=== PATIENT | female | born 1955 | race Hispanic/Latino ===

== ENCOUNTER 2016-06-10 11:06 | Emergency (ER) | payer OTHER, MEDICARE ==
[2016-06-10 11:23] VITALS: BP 140/70
[2016-06-10] MEDS ORDERED: TORADOL IM ONE (14:31)
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
[2016-06-10 14:58] LABS: Hematocrit 44.9 % (30.3-42.9); Mean Corpuscular HGB Conc 34 % (30-34); Mean Corpuscular Hemoglobin 30 pg (28-32); Mean Corpuscular Volume 90 fl (79-97); Platelet Count 227 K/mm3 (140-440); Red Blood Count 5.01 M/mm3 (3.65-5.03); Red Cell Distribution Width 14.1 % (13.2-15.2); White Blood Count 8.7 K/mm3 (4.5-11.0)
[2016-06-10 15:16] LABS: Amylase 14 units/L (27-131); Lipase 15 units/L (13-60)
--- NOTE | 2016-06-10 15:51 | Ultrasound Report ---
Limited abdominal ultrasound: Images of the liver and pancreas are echogenically unremarkable as is the gallbladder. The CBD diameter is 4.4 mm. The right renal length is 11.5 cm and the kidney is also echogenically normal. No other findings. The transverse diameter of the proximal abdominal aorta is 1.5 cm. Impression: No abnormality identified.
== END 2016-06-10 16:29 | disposition home or self-care (01) ==
LOC: ED 11:06
DX: S80.211A Abrasion, right knee, initial encounter (principal); R07.9 Chest pain, unspecified; E11.9 Type 2 diabetes mellitus without complications; G43.909 Migraine, unspecified, not intractable, without status migrainosus; J45.909 Unspecified asthma, uncomplicated; J44.9 Chronic obstructive pulmonary disease, unspecified; F17.200 Nicotine dependence, unspecified, uncomplicated; V49.59XA Passenger injured in collision with other motor vehicles in traffic accident, initial encounter; Y93.9 Activity, unspecified; Y92.9 Unspecified place or not applicable; Y99.9 Unspecified external cause status
CPT/HCPCS: 36415; 76705; 82150; 83690; 85027; 96372; 99284; J1885

== ENCOUNTER 2016-07-19 14:02 | Inpatient (IN) | payer MEDICARE, OTHER ==
[2016-07-19] MEDS ORDERED: TORADOL IV ONE (15:50)
[2016-07-19] MEDS ORDERED: ZOFRAN IV ONE (15:50)
[2016-07-19] MEDS ORDERED: MORPHINE IV ONE (15:50)
[2016-07-19] MEDS ORDERED: NACL 0.9% 1000 ML 1,000 ML IV ONE (15:50)
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
[2016-07-19] MEDS ORDERED: CLEOCIN 900 MG/50 mL 900 MG/50 ML BAG IV ONE (16:54)
[2016-07-19 17:11] LABS: Basophils % (Auto) 0.5 % (0.0-1.8); Eosinophils % (Auto) 3.3 % (0.0-4.3); Hematocrit 42.3 % (30.3-42.9); Hemoglobin 13.9 gm/dl (10.1-14.3); Mean Corpuscular HGB Conc 33 % (30-34); Mean Corpuscular Hemoglobin 30 pg (28-32); Mean Corpuscular Volume 90 fl (79-97); Platelet Count 243 K/mm3 (140-440); Red Blood Count 4.68 M/mm3 (3.65-5.03); Red Cell Distribution Width 13.5 % (13.2-15.2)
[2016-07-19 17:24] LABS: Anion Gap 15 mmol/L; Blood Urea Nitrogen 11 mg/dL (7-17); Calcium 9.2 mg/dL (8.4-10.2); Carbon Dioxide 26 mmol/L (22-30); Glucose 360 mg/dL (65-100); Potassium 4.3 mmol/L (3.6-5.0); Sodium 133 mmol/L (137-145)
[2016-07-19] MEDS ORDERED: D50W (25GM) IV PRN (17:33)
--- NOTE | 2016-07-19 17:44 | Admit Criteria Form ---
Admission Criteria Documentation: DIABETES Clinical Indications for Admission to Inpatient Care (Place 'X' for any and all applicable criteria): Admission is indicated by presence of ALL (if I & II) or ANY ONE (if III or IV) of the following (1)(2)(3)(4): [X]I. Diabetes is uncontrolled as indicated by ANY ONE of the following: [X]a) Diabetic ketoacidosis as indicated by ALL of the following (8): [X]i) Hyperglycemia (eg, plasma glucose greater than 200 mg/ dL (11.1 mmol/L)) [X]ii) Acidosis (eg, arterial pH less than 7.30, serum bicarbonate level less than 15 mEq/L (mmol/L)) [ ]iii) Moderate ketonuria or ketonemia [ ]b) Hyperglycemic hyperosmolar state as indicated by ALL of the following(9)(10): [ ]i) Neurologic dysfunction (eg, stupor, coma, hemiparesis , seizure)(13) [ ]ii) Plasma glucose greater than 600 mg/dL (33.3 mmol/L) [ ]iii) Serum osmolality greater than 320 mOsm/kg (mmol/kg) [X]c) Severe signs or symptoms secondary to hyperglycemia indicated by ANY ONE of the following: [ ]i) Altered mental status(10) [ ]ii) Significant hypovolemia or dehydration [ ]iii) Intractable nausea or vomiting [X]iv) Unexplained fever or severe infection [X]v) Severe electrolyte abnormality (eg, hypokalemia, hyperkalemia, hypernatremia) [ ]II. Management at other levels of care (Also use Diabetes: Observation Care as appropriate) is not feasible because of ANY ONE of the following: [ ]a) Condition was not adequately corrected with treatment at other levels of care. [ ]b) Treatment at other levels of care is not appropriate because of condition severity (eg, hyperosmolar coma). [X]III. Contraindications and/or Inappropriate clinical situations for Observational Care in patients with Diabetes, when ANY ONE of the following is required: [X]a) Patient require specific diagnostic workup or therapeutic intervention 22 [ ]b) Patient with abnormal vital signs or altered mental status 23 [ ]IV. General contraindications and/or Inappropriate clinical situations for Observational Care in patients with Diabetes, when ANY ONE of the following is required: [ ]a) Prediction of prolongation of LOS based on ANY ONE of the following may be considered as a contraindication for observational care 2, 3, 4, 5, 6, 7, 8, 9, 10, 11 [ ]i) Age > 65 yrs. [ ]ii) Patient arriving by ambulance [ ]iii) Patient with high acuity [ ]iv) Patient requiring vital sign monitoring [ ]v) Patient on IV medication [ ]b) Systolic blood pressures 180mmHg 3,12 [ ]c) Patient with altered mental status including delirium and other alteration of consciousness, (3) [ ]d) Patient whose discharge disposition will be to a snf home or rehabilitation home should not be managed in Emergency Department Observation Unit. CMS rule requires 3 days hospital stay before such placement.3,13 [ ]e) Patient with failure to thrive due to broad array of etiologies 3,16,17 [ ]f) Inability to ambulate 3,14 Extended stay beyond goal length of stay may be needed for(3)(20): [ ]a) Treatment of precipitating causes [ ]b) Development of hypoglycemia [ ]c) Complications of treatment [ ]d) Complications of decompensated diabetes (eg, acute gastric dilatation, persistent metabolic or neurologic derangement) [ ]e) Active Comorbidities [ ]f) Older patients( 65 years or older) The original [employer] content created by [employer] has been revised. The portions of the content which have been revised are identified through the use of italic text or in bold,and [facility] has neither reviewed nor approved the modified material. All other unmodified content is copyright [facility]. Please see references footnoted in the original [facility] edition 2016 Admission Criteria Met: Yes
[2016-07-19 18:24] LABS: Bilirubin,Urine NEG (Negative); Blood,Urine NEG (Negative); Ketones,Urine NEG (Negative); Leukocyte Esterase,Urine MOD (Negative); Nitrite,Urine NEG (Negative); Protein,Urine <15 mg/dL mg/dL (Negative); Urobilinogen,Urine < 2.0 mg/dL (<2.0)
[2016-07-19 18:55] LABS: Anion Gap 14 mmol/L; Blood Urea Nitrogen 11 mg/dL (7-17); Calcium 9.1 mg/dL (8.4-10.2); Carbon Dioxide 26 mmol/L (22-30); Chloride 96.9 mmol/L (98-107); Glucose 327 mg/dL (65-100); Magnesium 1.6 mg/dL (1.7-2.3); Phosphorous 4.2 mg/dL (2.5-4.5); Potassium 4.4 mmol/L (3.6-5.0); Sodium 132 mmol/L (137-145)
[2016-07-19 20:08] LABS: Anion Gap 15 mmol/L; Blood Urea Nitrogen 11 mg/dL (7-17); Calcium 9.2 mg/dL (8.4-10.2); Carbon Dioxide 27 mmol/L (22-30); Chloride 95.3 mmol/L (98-107); Glucose 326 mg/dL (65-100); Potassium 4.3 mmol/L (3.6-5.0); Sodium 133 mmol/L (137-145)
[2016-07-19] MEDS ORDERED: DULCOLAX PR PRN (22:40)
[2016-07-19] MEDS ORDERED: NORCO 5/325 PO PRN (22:40)
[2016-07-19] MEDS ORDERED: MILK OF MAGNESIA PO PRN (22:40)
[2016-07-19] MEDS ORDERED: ZOFRAN IV PRN (22:40)
[2016-07-19] MEDS ORDERED: TYLENOL PO PRN (22:40)
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
[2016-07-19 22:48] LABS: Anion Gap 16 mmol/L; BUN/Creatinine Ratio 23.33; Blood Urea Nitrogen 14 mg/dL (7-17); Calcium 9.1 mg/dL (8.4-10.2); Carbon Dioxide 26 mmol/L (22-30); Chloride 95.8 mmol/L (98-107); Glucose 356 mg/dL (65-100); Potassium 4.3 mmol/L (3.6-5.0); Sodium 133 mmol/L (137-145)
[2016-07-19] MEDS ORDERED: NACL 0.9% 1000 ML 1,000 ML IV SCH (23:00)
[2016-07-19] MEDS ORDERED: MAGNESIUM SULFATE 2GM/50ML 2 GM/50 ML BAG IV ONE (23:38)
[2016-07-20 00:08] LABS: Anion Gap 17 mmol/L; Blood Urea Nitrogen 15 mg/dL (7-17); Calcium 9.4 mg/dL (8.4-10.2); Carbon Dioxide 26 mmol/L (22-30); Chloride 95.7 mmol/L (98-107); Glucose 342 mg/dL (65-100); Potassium 4.3 mmol/L (3.6-5.0); Sodium 134 mmol/L (137-145)
[2016-07-20] MEDS ORDERED: MAGNESIUM SULFATE 2GM/50ML 2 GM/50 ML BAG IV ONE (00:10)
[2016-07-20] MEDS ORDERED: NACL 0.9% 1000 ML 1,000 ML ONE (00:10)
[2016-07-20] MEDS ORDERED: CLEOCIN 600 MG/50 mL 600 MG/50 ML BAG IV SCH (01:00)
[2016-07-20] MEDS: NovoLIN R 100 UNITS in NACL 0.9% 99 ML IV SCH ×10 (01:05→11:46)
[2016-07-20] MEDS: MORPHINE IV PRN ×3 (01:10→19:34)
[2016-07-20] MEDS: CLEOCIN 600 MG/50 mL 600 MG/50 ML BAG IV SCH ×3 (01:28→19:29)
[2016-07-20 01:55] LABS: Anion Gap 16 mmol/L; Blood Urea Nitrogen 16 mg/dL (7-17); Calcium 9.1 mg/dL (8.4-10.2); Carbon Dioxide 24 mmol/L (22-30); Chloride 98.8 mmol/L (98-107); Glucose 190 mg/dL (65-100); Potassium 3.6 mmol/L (3.6-5.0); Sodium 135 mmol/L (137-145)
[2016-07-20] MEDS ORDERED: D5/0.45NS 1,000 ML IV SCH (03:00)
[2016-07-20 05:40] LABS: Basophils % (Auto) 0.6 % (0.0-1.8); Eosinophils % (Auto) 5.7 % (0.0-4.3); Hematocrit 42.6 % (30.3-42.9); Mean Corpuscular HGB Conc 33 % (30-34); Mean Corpuscular Hemoglobin 30 pg (28-32); Mean Corpuscular Volume 91 fl (79-97); Platelet Count 220 K/mm3 (140-440); Red Blood Count 4.69 M/mm3 (3.65-5.03); Red Cell Distribution Width 13.8 % (13.2-15.2); White Blood Count 8.6 K/mm3 (4.5-11.0)
[2016-07-20] MEDS ORDERED: NON-FORMULARY (Solifenacin Succinate [Vesicare] 5 MG) PO SCH (10:00)
[2016-07-20 10:37] LABS: Anion Gap 13 mmol/L; Blood Urea Nitrogen 15 mg/dL (7-17); Calcium 8.8 mg/dL (8.4-10.2); Carbon Dioxide 25 mmol/L (22-30); Chloride 99.2 mmol/L (98-107); Glucose 82 mg/dL (65-100); Potassium 3.8 mmol/L (3.6-5.0); Sodium 133 mmol/L (137-145)
[2016-07-20] MEDS: LOVENOX SUB-Q SCH (10:54)
[2016-07-20] MEDS: COLACE PO SCH ×2 (10:56→22:16)
[2016-07-20] MEDS: PEPCID IV SCH ×2 (10:57→22:15)
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
[2016-07-20] MEDS ORDERED: D50W (25GM) IV PRN (11:50)
[2016-07-20] MEDS ORDERED: FLUARIX QUAD 2016-2017(36 MOS+) IM ONE (12:00)
[2016-07-20] MEDS ORDERED: LEVEMIR SUB-Q ONE (12:30)
[2016-07-20] MEDS: LEVEMIR SUB-Q SCH ×2 (14:57→22:15)
[2016-07-20 17:31] LABS: Anion Gap 14 mmol/L; Blood Urea Nitrogen 14 mg/dL (7-17); Calcium 8.7 mg/dL (8.4-10.2); Carbon Dioxide 25 mmol/L (22-30); Chloride 95.1 mmol/L (98-107); Glucose 376 mg/dL (65-100); Potassium 4.2 mmol/L (3.6-5.0); Sodium 130 mmol/L (137-145)
[2016-07-21] MEDS ORDERED: BENADRYL IV PRN (00:15)
[2016-07-21] MEDS: CLEOCIN 600 MG/50 mL 600 MG/50 ML BAG IV SCH ×3 (01:18→17:09)
[2016-07-21 07:51] LABS: Anion Gap 16 mmol/L; Blood Urea Nitrogen 15 mg/dL (7-17); Calcium 8.5 mg/dL (8.4-10.2); Carbon Dioxide 24 mmol/L (22-30); Chloride 101.4 mmol/L (98-107); Glucose 289 mg/dL (65-100); Potassium 4.1 mmol/L (3.6-5.0); Sodium 137 mmol/L (137-145)
[2016-07-21] MEDS: MORPHINE IV PRN ×2 (09:29→17:09)
[2016-07-21] MEDS: PEPCID IV SCH ×2 (09:29→21:47)
[2016-07-21] MEDS: LOVENOX SUB-Q SCH (09:30)
[2016-07-21] MEDS: COLACE PO SCH ×2 (12:19→21:47)
--- NOTE | 2016-07-21 13:50 | Progress Note ---
Assessment and Plan - Patient Problems (1) Cellulitis of right knee Current Visit: Yes Status: Acute Plan to address problem: Mellitus right knee has improved significantly. Would change to by mouth antibodies in a.m. in preparation for discharge. (2) DKA (diabetic ketoacidoses) Current Visit: Yes Status: Acute Qualifiers: Diabetes mellitus type: D Diabetes mellitus complication detail: D Plan to address problem: DK resolved however patient has uncontrolled hyperglycemia. Will change to 7030 insulin twice daily. (3) UTI (urinary tract infection) Current Visit: Yes Status: Acute Qualifiers: Urinary tract infection type: U Hematuria presence: H Indwelling urinary catheter type: I Encounter type: E Plan to address problem: Continue treatment with clindamycin. History Interval history: Patient continues to improve up drawing all questions and concerns answered to patient's satisfaction. Patient also complains of yeast. Accu-Cheks remained suboptimally controlled but improved. Hospitalist Physical - Constitutional Vitals: Temp Pulse Resp BP Pulse Ox 98.1 F 84 18 124/58 96 07/21/16 12:00 07/21/16 03:24 07/21/16 03:24 07/21/16 08:22 07/20/16 20:01 General appearance: Present: no acute distress - EENT Eyes: Present: PERRL, EOM intact ENT: hearing intact, clear oral mucosa, dentition normal - Neck Neck: Present: supple, normal ROM - Respiratory Respiratory effort: normal Respiratory: bilateral: CTA - Cardiovascular Rhythm: regular Heart Sounds: Present: S1 & S2 - Extremities Extremities: no ischemia, pulses intact, pulses symmetrical, No edema, normal temperature Extremity abnormal: other (edema almost completely resolved.) - Abdominal General gastrointestinal: soft, non-tender, non-distended, normal bowel sounds, other ([place]) - Integumentary Integumentary: Present: clear, dry - Psychiatric Psychiatric: appropriate mood/affect, intact judgment & insight, cooperative - Neurologic Neurologic: CNII-XII intact, no focal deficits Results - Labs CBC & Chem 7: 07/20/16 04:50 07/21/16 06:44 Labs: Laboratory Last Values WBC 8.6 K/mm3 (4.5-11.0) 07/20/16 04:50 RBC 4.69 M/mm3 (3.65-5.03) 07/20/16 04:50 Hgb 14.0 gm/dl (10.1-14.3) 07/20/16 04:50 Hct 42.6 % (30.3-42.9) 07/20/16 04:50 MCV 91 fl (79-97) 07/20/16 04:50 MCH 30 pg (28-32) 07/20/16 04:50 MCHC 33 % (30-34) 07/20/16 04:50 RDW 13.8 % (13.2-15.2) 07/20/16 04:50 Plt Count 220 K/mm3 (140-440) 07/20/16 04:50 Lymph % (Auto) 34.7 % (13.4-35.0) 07/20/16 04:50 [place] % (Auto) 8.2 % (0.0-7.3) H 07/20/16 04:50 Eos % (Auto) 5.7 % (0.0-4.3) H 07/20/16 04:50 Baso % (Auto) 0.6 % (0.0-1.8) 07/20/16 04:50 Lymph # 3.0 K/mm3 (1.2-5.4) 07/20/16 04:50 [place] # 0.7 K/mm3 (0.0-0.8) 07/20/16 04:50 Eos # 0.5 K/mm3 (0.0-0.4) H 07/20/16 04:50 Baso # 0.1 K/mm3 (0.0-0.1) 07/20/16 04:50 Seg Neutrophils % 50.8 % (40.0-70.0) 07/20/16 04:50 Seg Neutrophils # 4.3 K/mm3 (1.8-7.7) 07/20/16 04:50 VBG pH 7.318 (7.320-7.420) L 07/19/16 16:47 Sodium 137 mmol/L (137-145) D 07/21/16 06:44 Potassium 4.1 mmol/L (3.6-5.0) 07/21/16 06:44 Chloride 101.4 mmol/L (98-107) 07/21/16 06:44 Carbon Dioxide 24 mmol/L (22-30) 07/21/16 06:44 Anion Gap 16 mmol/L 07/21/16 06:44 BUN 15 mg/dL (7-17) 07/21/16 06:44 Creatinine 0.4 mg/dL (0.7-1.2) L 07/21/16 06:44 Estimated GFR > 60 ml/min 07/21/16 06:44 BUN/Creatinine Ratio 37.50 % 07/21/16 06:44 Glucose 289 mg/dL (65-100) H 07/21/16 06:44 POC Glucose 285 (70-105) H 07/21/16 11:46 Hemoglobin A1c 12.1 % (4-6) H 07/19/16 16:47 Calcium 8.5 mg/dL (8.4-10.2) 07/21/16 06:44 Phosphorus 4.2 mg/dL (2.5-4.5) 07/19/16 18:25 Magnesium 1.6 mg/dL (1.7-2.3) L 07/19/16 18:25 Urine Color Yellow (Yellow) 07/19/16 17:18 Urine Turbidity Slightly-cloudy (Clear) 07/19/16 17:18 Urine pH 5.0 (5.0-7.0) 07/19/16 17:18 Ur Specific [place] 1.033 (1.003-1.030) H 07/19/16 17:18 Urine Protein <15 mg/dl mg/dL (Negative) 07/19/16 17:18 Urine Glucose (UA) >=500 mg/dL (Negative) 07/19/16 17:18 Urine Ketones Neg mg/dL (Negative) 07/19/16 17:18 Urine Blood Neg (Negative) 07/19/16 17:18 Urine Nitrite Neg (Negative) 07/19/16 17:18 Urine Bilirubin Neg (Negative) 07/19/16 17:18 Urine Urobilinogen < 2.0 mg/dL (<2.0) 07/19/16 17:18 Ur Leukocyte Esterase Mod (Negative) 07/19/16 17:18 Urine WBC (Auto) 27.0 /HPF (0.0-6.0) H 07/19/16 17:18 Urine RBC (Auto) 108.0 /HPF (0.0-6.0) 07/19/16 17:18 U Epithel Cells (Auto) 3.0 /HPF (0-13.0) 07/19/16 17:18 Urine WBC Clumps 1+ /HPF 07/19/16 17:18 Urine Yeast (Budding) 3+ /HPF 07/19/16 17:18
[2016-07-21] MEDS ORDERED: DIFLUCAN PO ONE (17:00)
[2016-07-22 00:56] VITALS: BP 101/51
[2016-07-22] MEDS: CLEOCIN 600 MG/50 mL 600 MG/50 ML BAG IV SCH ×2 (04:25→12:22)
[2016-07-22] MEDS: MORPHINE IV PRN (04:29)
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
[2016-07-22] MEDS ORDERED: BACTRIM DS PO SCH (10:00)
--- NOTE | 2016-07-22 11:03 | Event Note ---
Date: 07/22/16 Consult called late last night seen and examined; admitted with DKA but doing better. - to be discharged today
[2016-07-22] MEDS: PEPCID IV SCH (12:23)
[2016-07-22] MEDS: COLACE PO SCH (12:26)
[2016-07-22] MEDS ORDERED: PEPCID PO SCH (22:00)
--- NOTE | 2016-07-26 14:43 | Query-Infection ---
"Naresh Saenz__ONDINA Date:__07/26/2016 Product Marketer/CDS:___oSy Darden Phone#: Exercise your independent professional judgment when responding to this query. Questions asked do not imply a particular answer is desired or expected. We greatly appreciate your clarification on this issue. Clinical Documentation States: The patient was admitted due to Foot Cellulitis, UTI. [place] 116 RR 25 BP 89/55 Clindamycin IV Clinical findings show: (please check applicable parameters) Infection, known /suspected, with some of the following indicators; Specify the infection: 3 General parameters [ ] Fever (core temp >38.30C or 100.40F) [ ] Hypothermia (core temp <36C) [ ] Heart rate >90 bpm [ ] Tachypnea: >20 bpm or pCO2 < 32 mmHg [ ] Altered mental status [ ] Significant edema / +ve fluid balance (>20 ml/kg 24 h) [ ] Hyperglycemia (Bl. glucose >110 mg/dl) w/o diabetes Inflammatory parameters [ ] Leukocytosis (white blood cell count >12,000/l) [ ] Leukopenia (white blood cell count <4,000/l) [ ] Bandemia (immature WBC > 10%) [ ] Leucocyte Left Shift [ ] Plasma procalcitonin>2 SD above the normal value Hemodynamic and tissue perfusion parameters [ ] Arterial hypotension(SBP <90 mmHg, MAP <70 mmHg,or a SBP drop >40 mmHg in adults) [ ] Hyperlactatemia (>3 mmol/l) [ ] Anion Gap (> 11mEG/l) [ ] Decreased capillary refill or mottling Organ dysfunction parameters [ ] Arterial hypoxemia (PaO2/FIO2 <300) [ ] Creatinine increase =0.5 mg/dl [ ] Acute oliguria (urine output <0.5 ml | kg |h or 45 mM/l for at least 2 hrs) [ ] Coagulation abnormalities (INR >1.5 or activated partial thromboplastin time >60 s) [ ] Ileus (absent maximo wel sounds) [ ] Thrombocytopenia (platelet count <100,000/l) [ ] Hyperbilirubinemia (plasma total bilirubin >4 mg/dl) According to the clinical indications above, can Bacteremia be further specified? If so, please indicate below and in your Progress Notes and/ or Discharge Summary. Indicate if the condition was present on admission. PHYSICIAN RESPONSE: [ ] Sepsis [ ] Severe Sepsis [ ] Septic Shock [ ] Septicemia [ ] Sepsis now resolved [ ] SIRS due to non-infectious cause with organ dysfunction [ ] SIRS due to non-infectious cause without organ dysfunction [ ] Other: [ ] Comment/Explanation: Present on Admission: [ ] Yes (Y) [ ] Clinically undeterminable (W) [ ] No ( N) [ ] Ruled Out Please also document response in your Progress Notes and/or Discharge Summary and indicate if the condition was present on admission Notes: SIRS/ SIRS WITH ORGAN DYSFUNCTION Systemic inflammatory response syndrome (SIRS) generally refers to the systemic response to trauma/cruz or other insult such as Acute Myocardial Infarction, Acute Pancreatitis, and Major Surgery with symptoms including fever, tachycardia , tachypnea, and leukocytosis (1). BACTEREMIA Presence of viable bacteria in the circulating blood (2). This term is reserved for patients that do not manifest above SIRS response. SEPTICEMIA Generally refers to a systemic disease associated with the presence of pathological microorganisms or toxins in the blood, which can include bacteria, viruses, fungi or other organisms (1). SEPSIS Generally refers to SIRS due infection (1). SEVERE SEPSIS Generally refers to sepsis associated with acute organ dysfunction (1). SEPTIC SHOCK Generally refers to circulatory failure associated with severe sepsis (2), and defined as hypotension or hypoperfusion despite adequate fluid resuscitation (1 hour) (3). REFERENCES: 1. [place] [employer]/Society of Critical Care Medicine Consensus Conference. Definitions for sepsis and organ failure and guidelines for the use of innovative therapies in sepsis. Critical Care Med 1992;20:864 - 74. 2. Lorenzo stover MM, Leslie MP, Spencer CHRISTIANSON, Gabriel E, Arnel D, Otilio D, Gavin J, Bri SM , Michael DON, Onesimo G; International Sepsis Definitions Conference. 2000 SCCM/ESICM/ACCP/ATS/SIS International Sepsis Definitions Conference. Intensive Care Med. 2002;29(4):530-8. Epub 2002Sep 03. Review. PubMed PMID:[id number] 3. ICD-9-CM Official Guidelines for Coding and Reporting 4. Medscape Drugs, Diseases and Procedures references 5. Dee Textbook of Internal Medicine. 18th Edition MTDD"
== END 2016-07-22 12:59 | disposition home health service (06) | DRG 871 ==
LOC: ED 14:02 → CC1 22:40
PROVIDERS: ADMIT Internal Medicine; ATTEND Internal Medicine
DX: A41.9 Sepsis, unspecified organism (principal); E13.10 Other specified diabetes mellitus with ketoacidosis without coma; N39.0 Urinary tract infection, site not specified; L03.115 Cellulitis of right lower limb; E87.1 Hypo-osmolality and hyponatremia; E11.628 Type 2 diabetes mellitus with other skin complications; M19.90 Unspecified osteoarthritis, unspecified site; J44.9 Chronic obstructive pulmonary disease, unspecified; J45.909 Unspecified asthma, uncomplicated; F32.9 Major depressive disorder, single episode, unspecified; G43.909 Migraine, unspecified, not intractable, without status migrainosus; F17.200 Nicotine dependence, unspecified, uncomplicated; N32.81 Overactive bladder; Z87.442 Personal history of urinary calculi; Z90.710 Acquired absence of both cervix and uterus; Z91.041 Radiographic dye allergy status; Z85.43 Personal history of malignant neoplasm of ovary; Z90.722 Acquired absence of ovaries, bilateral; Z90.711 Acquired absence of uterus with remaining cervical stump; Z80.41 Family history of malignant neoplasm of ovary; Z80.1 Family history of malignant neoplasm of trachea, bronchus and lung
CPT/HCPCS: 36415; 80048; 81001; 82805; 82962; 83036; 83735; 84100; 85025; 87040; 87086; 90686; 94760; 96361; 96365; 96366; 96375; 99406; J1200; J1650; J1815; J1818; J1885; J2270; J2405; J3475; J7030

== ENCOUNTER 2018-03-14 22:42 | Emergency (ER) | payer MEDICARE ==
[2018-03-14 23:51] VITALS: BP 132/75
[2018-03-15] MEDS ORDERED: ULTRAM PO ONE (06:18)
[2018-03-15] MEDS ORDERED: CLEOCIN PO ONE (06:18)
--- NOTE | 2018-03-15 06:26 | Emergency Department Report ---
- General Chief complaint: Skin/Abscess/Foreign Body Stated complaint: CYST ON BACK Time Seen by Provider: 03/15/18 06:13 Source: patient Mode of arrival: Ambulatory Limitations: No Limitations - History of Present Illness Initial comments: This patient is 62-year-old white female who presents for infected cyst upper back complains of pain swelling and erythema purulent drainage 2 days there is no fever no chills no nausea no vomiting MD complaint: abscess/boil (infected cyst ) Onset/Timin -: days(s) Tetanus Up to Date: yes Location: back Severity: moderate Severity scale (0 -10): 3 Quality: sharp Consistency: intermittent Improves with: none Worsens with: none Context: none Associated symptoms: itching Treatments Prior to Arrival: none - Related Data Previous Rx's Medication Instructions Recorded Last Taken Type Insulin NPH/Regular [NovoLIN 70/30] 20 unit SUB-Q BIDAC #1 vial 12/02/16 Unknown Rx Clotrimazole/Betamethasone 1 applic TP BID #1 tube 11/27/17 Unknown Rx Fluconazole [Diflucan TAB] 200 mg PO QDAY #7 tablet 11/27/17 Unknown Rx Solifenacin Succinate [Vesicare] 5 mg PO QDAY #30 tablet 11/27/17 Unknown Rx cephALEXin [Keflex] 500 mg PO Q12HR #6 cap 11/27/17 Unknown Rx oxyCODONE /ACETAMINOPHEN [Percocet 1 tab PO Q6H PRN #20 tablet 11/27/17 Unknown Rx 5/325 mg] oxyCODONE /ACETAMINOPHEN [Percocet 2 tab PO Q6H PRN #20 tablet 11/27/17 Unknown Rx 5/325 mg] ALBUTEROL Inhaler(NF) [VENTOLIN 2 puff IH Q4HR #1 inha 02/12/18 Unknown Rx Inhaler(NF)] Benzonatate [Tessalon Perle] 100 mg PO TID PRN #21 capsule 02/12/18 Unknown Rx levoFLOXacin [Levaquin] 750 mg PO QDAY #5 tablet 02/12/18 Unknown Rx traMADol [Ultram] 50 mg PO Q6HR PRN #20 tablet 02/12/18 Unknown Rx Clindamycin [Clindamycin CAP] 300 mg PO Q6H #40 capsule 03/15/18 Unknown Rx traMADol [Ultram] 50 mg PO Q6HR PRN 3 Days #12 tablet 03/15/18 Unknown Rx Allergies Allergy/AdvReac Type Severity Reaction Status Date / Time codeine Allergy Swelling Verified 11/26/17 03:08 latex Allergy Swelling Verified 11/26/17 03:09 ivp dye Allergy Anaphylaxis Uncoded 08/17/15 09:06 Abscess Boil HPI - HPI Chief Complaint: Skin/Abscess/Foreign Body Stated Complaint: CYST ON BACK Time Seen by Provider: 03/15/18 06:13 Home Medications: Previous Rx's Medication Instructions Recorded Last Taken Type Insulin NPH/Regular [NovoLIN 70/30] 20 unit SUB-Q BIDAC #1 vial 12/02/16 Unknown Rx Clotrimazole/Betamethasone 1 applic TP BID #1 tube 11/27/17 Unknown Rx Fluconazole [Diflucan TAB] 200 mg PO QDAY #7 tablet 11/27/17 Unknown Rx Solifenacin Succinate [Vesicare] 5 mg PO QDAY #30 tablet 11/27/17 Unknown Rx cephALEXin [Keflex] 500 mg PO Q12HR #6 cap 11/27/17 Unknown Rx oxyCODONE /ACETAMINOPHEN [Percocet 1 tab PO Q6H PRN #20 tablet 11/27/17 Unknown Rx 5/325 mg] oxyCODONE /ACETAMINOPHEN [Percocet 2 tab PO Q6H PRN #20 tablet 11/27/17 Unknown Rx 5/325 mg] ALBUTEROL Inhaler(NF) [VENTOLIN 2 puff IH Q4HR #1 inha 02/12/18 Unknown Rx Inhaler(NF)] Benzonatate [Tessalon Perle] 100 mg PO TID PRN #21 capsule 02/12/18 Unknown Rx levoFLOXacin [Levaquin] 750 mg PO QDAY #5 tablet 02/12/18 Unknown Rx traMADol [Ultram] 50 mg PO Q6HR PRN #20 tablet 02/12/18 Unknown Rx Clindamycin [Clindamycin CAP] 300 mg PO Q6H #40 capsule 03/15/18 Unknown Rx traMADol [Ultram] 50 mg PO Q6HR PRN 3 Days #12 tablet 03/15/18 Unknown Rx Allergies/Adverse Reactions: Allergies Allergy/AdvReac Type Severity Reaction Status Date / Time codeine Allergy Swelling Verified 11/26/17 03:08 latex Allergy Swelling Verified 11/26/17 03:09 ivp dye Allergy Anaphylaxis Uncoded 08/17/15 09:06 ED Review of Systems ROS: Stated complaint: CYST ON BACK Other details as noted in HPI Constitutional: denies: chills, fever Eyes: denies: eye pain, eye discharge, vision change ENT: denies: ear pain, throat pain Respiratory: denies: cough, shortness of breath, wheezing Cardiovascular: denies: chest pain, palpitations Endocrine: no symptoms reported Gastrointestinal: denies: abdominal pain, nausea, diarrhea Genitourinary: denies: urgency, dysuria, discharge Musculoskeletal: denies: back pain, joint swelling, arthralgia Skin: lesions, other (infecte upper back cyst ) Neurological: denies: headache, weakness, paresthesias Psychiatric: denies: anxiety, depression ED Past Medical Hx - Past Medical History Hx Heart Attack/AMI: No Hx Congestive Heart Failure: No Hx Diabetes: Yes Hx Liver Disease: Yes Hx Renal Disease: Yes (h/o kidney stones) Hx Arthritis: Yes Hx Headaches / Migraines: Yes Hx Kidney Stones: Yes Hx Psychiatric Treatment: Yes (depression) Hx Asthma: Yes Hx COPD: Yes Additional medical history: ovarian cancer - Surgical History Hx Open Heart Surgery: No Hx Cholecystectomy: No Hx Appendectomy: No Hx Breast Surgery: No Additional Surgical History: hysterectomy. kidney stone removal - Social History Smoking Status: Current Every Day Smoker Substance Use Type: None - Medications Home Medications: Home Medications Medication Instructions Recorded Confirmed Last Taken Type Insulin NPH/Regular [NovoLIN 70/30] 20 unit SUB-Q BIDAC #1 vial 12/02/16 Unknown Rx Clotrimazole/Betamethasone 1 applic TP BID #1 tube 11/27/17 Unknown Rx Fluconazole [Diflucan TAB] 200 mg PO QDAY #7 tablet 11/27/17 Unknown Rx Solifenacin Succinate [Vesicare] 5 mg PO QDAY #30 tablet 11/27/17 Unknown Rx cephALEXin [Keflex] 500 mg PO Q12HR #6 cap 11/27/17 Unknown Rx oxyCODONE /ACETAMINOPHEN [Percocet 1 tab PO Q6H PRN #20 tablet 11/27/17 Unknown Rx 5/325 mg] oxyCODONE /ACETAMINOPHEN [Percocet 2 tab PO Q6H PRN #20 tablet 11/27/17 Unknown Rx 5/325 mg] ALBUTEROL Inhaler(NF) [VENTOLIN 2 puff IH Q4HR #1 inha 02/12/18 Unknown Rx Inhaler(NF)] Benzonatate [Tessalon Perle] 100 mg PO TID PRN #21 capsule 02/12/18 Unknown Rx levoFLOXacin [Levaquin] 750 mg PO QDAY #5 tablet 02/12/18 Unknown Rx traMADol [Ultram] 50 mg PO Q6HR PRN #20 tablet 02/12/18 Unknown Rx Clindamycin [Clindamycin CAP] 300 mg PO Q6H #40 capsule 03/15/18 Unknown Rx traMADol [Ultram] 50 mg PO Q6HR PRN 3 Days #12 tablet 03/15/18 Unknown Rx ED Physical Exam - General Limitations: No Limitations General appearance: alert, in no apparent distress - Head Head exam: Present: atraumatic, normocephalic - Eye Eye exam: Present: normal appearance - ENT ENT exam: Present: mucous membranes moist - Neck Neck exam: Present: normal inspection - Respiratory Respiratory exam: Present: normal lung sounds bilaterally. Absent: respiratory distress - Cardiovascular Cardiovascular Exam: Present: regular rate, normal rhythm. Absent: systolic murmur, diastolic murmur, rubs, gallop - GI/Abdominal GI/Abdominal exam: Present: soft, normal bowel sounds - Rectal Rectal exam: Present: deferred - Extremities Exam Extremities exam: Present: normal inspection - Back Exam Back exam: Present: other (upper back cyst erythema fluctuant, pain warm to touch ) - Neurological Exam Neurological exam: Present: alert, oriented X3, CN II-XII intact, reflexes normal - Psychiatric Psychiatric exam: Present: normal affect, normal mood - Skin Skin exam: Present: warm, dry, intact, normal color. Absent: rash ED Course Vital Signs 03/14/18 03/14/18 03/15/18 22:45 23:48 06:27 Temperature 99.0 F 99.0 F Pulse Rate 124 H 115 H Respiratory 18 17 18 Rate Blood Pressure 132/75 132/75 O2 Sat by Pulse 93 99 Oximetry - I & D Upper Back Type of Procedure: Simple Site: upper back Blade Size: 11 I & D Procedure: betadine prep, sterile drapes applied, sterile dressing applied , gauze wick placed Progress: Treatment 3 infected dermoid cyst right upper back fluctuance and erythema painful site clean and Betadine solution and anesthesia with 1% lidocaine plain 3 mL incision with 11 blade approximately 1/2 cm purulent output and irrigated with sterile saline 100 mL iodoform wick gauze patient advises stops requesting surgical consult outpatient for follow-up and she cannot stay and has to go all bleeding controlled sterile dressing applied patient given wound care instructions tetanus is up-to-date DC on clindamycin outpatient follow-up general surgery in 2 days or return to ED if symptoms worsen ED Medical Decision Making - Medical Decision Making I&D of infected cyst see procedure note patient tolerated procedure without minimal distress patient will follow up with general surgery in 2-3 days return to ED if symptoms should worsen patient verbalizes agreement and understanding the discharge plan for DC to home in stable condition at this time, repeat vital signs improved temp: 98.7, hr: 100, res 16, bp 123/68 , pt is tolerating po intake without symptoms Critical care attestation.: If time is entered above; I have spent that time in minutes in the direct care of this critically ill patient, excluding procedure time. ED Disposition Clinical Impression: Infected cyst of skin Disposition: DC-01 TO HOME OR SELFCARE Is pt being admited?: No Does the pt Need Aspirin: No Condition: Stable Instructions: Abscess (ED), Skin Pseudocyst (ED) Prescriptions: Clindamycin [Clindamycin CAP] 300 mg PO Q6H #40 capsule traMADol [Ultram] 50 mg PO Q6HR PRN 3 Days #12 tablet PRN Reason: Pain Referrals: MARIELENA ARANDA DO [Staff Physician] - 3-5 Days Forms: Work/School Release Form(ED) Time of Disposition: 06:36
== END 2018-03-15 06:50 | disposition home or self-care (01) ==
LOC: ED 22:42
DX: L02.212 Cutaneous abscess of back [any part, except buttock and flank] (principal); E11.9 Type 2 diabetes mellitus without complications; M19.90 Unspecified osteoarthritis, unspecified site; G43.909 Migraine, unspecified, not intractable, without status migrainosus; F17.200 Nicotine dependence, unspecified, uncomplicated; Z88.6 Allergy status to analgesic agent; Z91.041 Radiographic dye allergy status; Z91.040 Latex allergy status
CPT/HCPCS: 99282